=== PATIENT | male | born 1950 | race Caucasian/White ===

== ENCOUNTER 2018-09-17 12:10 | Outpatient (CLI) | payer OTHER | END 2018-09-17 12:11 | disposition home or self-care (01) | LOC: RHC-LAB 12:10 | PROVIDERS: ATTEND Nurse Practitioner Family | DX: I10 Essential (primary) hypertension (principal); E78.5 Hyperlipidemia, unspecified; Z12.5 Encounter for screening for malignant neoplasm of prostate | CPT/HCPCS: 36415; 80053; 80061; 84443; 85025 ==

== ENCOUNTER 2019-02-25 15:15 | Outpatient (CLI) | END 2019-02-25 15:16 | disposition home or self-care (01) | LOC: RHC-LAB 15:15 → FCC-LAB 15:16 | PROVIDERS: ATTEND Nurse Practitioner Family | DX: I25.2 Old myocardial infarction (principal); I10 Essential (primary) hypertension | CPT/HCPCS: 36415; 80053; 85025 ==